=== PATIENT | female | born 1960 | race African-American/Black ===

== ENCOUNTER 2019-09-20 22:19 | Emergency (ER) | payer MEDICAID ==
[~2019-09-20] VITALS: Ht 167.6 cm; Wt 109.0 kg
[~2019-09-20 22:19] MED LIST: AMLO5TAB4 PO; ASPI-1393 PO; DOCU-138 PO
[2019-09-20] MEDS ORDERED: MORPHINE SULFATE 4 MG/ML CPJ (NOT FOR IM USE) IV STA (22:28)
[2019-09-20] MEDS ORDERED: SODIUM CHLORIDE 0.9% 500 ML IV ONE (22:30)
[2019-09-20] MEDS ORDERED: HYDRALAZINE 20MG/ML VIAL IV ONE (22:30)
[2019-09-20] MEDS ORDERED: ONDANSETRON HCL 4MG/2ML INJ IV ONE (22:45)
[2019-09-20] MEDS ORDERED: NICARDIPINE 50 MG in SODIUM CHLORIDE 0.9% 230 ML IV PRN ×2 (23:15→23:30)
[2019-09-20] MEDS ORDERED: ETOMIDATE 2MG/ML 10ML VIAL IV ONE (23:29)
[2019-09-20] MEDS ORDERED: VECURONIUM BROMIDE 10 MG/VIAL IV ONE (23:29)
[2019-09-20] MEDS ORDERED: SUCCINYLCHOLINE CHLORIDE 200MG/10ML IV ONE (23:29)
[2019-09-20] MEDS ORDERED: DEXAMETHASONE 4MG/ML 1ML VIAL IV ONE (23:30)
[2019-09-20] MEDS ORDERED: LORAZEPAM 2MG/ML CPJ ONE (23:49)
[2019-09-21] MEDS ORDERED: PROPOFOL 10MG/ML 100ML 100 ML IV SCH
[2019-09-21] MEDS ORDERED: LORAZEPAM 2MG/ML CPJ IV ONE
[2019-09-21 00:16] LABS: BG BASE EXCESS 1.7 mmol/L (-2.0-2.0); BG CARBOXYHEMOGLOBIN 0.1 % (0.5-1.5); BG DEOXYHEMOGLOBIN 0.5 % (0.0-5.0); BG FRACTION INSPIRED OXYGEN 100; BG METHEMOGLOBIN 0.2 % (0.0-1.5); BG OXYGEN SATURATION 99.5 % (92.0-98.5); BG OXYHEMOGLOBIN 99.2 % (94.0-97.0); BG PCO2 50.9 mmHg (35.0-45.0); BG PH 7.358 (7.350-7.450); BG SAMPLE SITE RIGHT RADIAL; BG TIDAL VOLUME(mL) 500 mL; BG TOTAL HEMOGLOBIN 12.9 g/dL (12.0-18.0); BG VENT MODE VENT - A/C; BG VENT RATE 14 set
[2019-09-21 00:17] LABS: BASOPHILS % 0.2 % (0.0-2.0); EOSINOPHILS % 0.5 % (0.0-5.0); HEMATOCRIT. 37.6 % (36.0-48.0); HEMOGLOBIN. 12.4 g/dL (12.0-16.0); LYMPHOCYTES % 14.9 % (20.0-50.0); MEAN CORPUSCULAR HEMOGLOBIN 29.1 pg (28.0-32.0); MEAN CORPUSCULAR VOLUME 87.8 fL (81.0-99.0); MEAN PLATELET VOLUME 7.8 fl (7.4-10.4); MONOCYTES % 3.7 % (2.0-8.0); NEUTROPHILS % 80.7 % (40.0-76.0); PLATELET 303 x1000/uL (130-400); RED BLOOD CELL COUNT 4.28 mill/uL (4.2-5.4); RED CELL DISTRIBUTION WIDTH 14.7 % (11.6-14.6)
[2019-09-21 00:23] LABS: CHLORIDE 104 mEq/L (98-107)
[2019-09-21 00:27] LABS: PARTIAL THROMBOPLASTIN TIME 23.2 sec (23.4-31.0); PROTHROMBIN TIME 10.7 sec (9.6-11.0)
[2019-09-21] MEDS ORDERED: MIDAZOLAM HCL 50 MG in DEXTROSE 5% WATER 40 ML IV ONE ×8 (01:00→02:30)
[2019-09-21] MEDS ORDERED: MANNITOL 12.5G (25%) VIAL 50ML IV ONE (01:30)
[2019-09-21] MEDS ORDERED: VECURONIUM BROMIDE 10 MG/VIAL IV ONE (03:30)
[2019-09-21 03:33] VITALS: BP 127/72
== END 2019-09-21 04:35 | disposition short-term general hospital (02) ==
LOC: ER 22:19 → CANBEDREQ 09-21 05:55
DX: I62.9 Nontraumatic intracranial hemorrhage, unspecified (principal); E66.01 Morbid (severe) obesity due to excess calories; J45.909 Unspecified asthma, uncomplicated; I10 Essential (primary) hypertension; Z98.890 Other specified postprocedural states; Z79.899 Other long term (current) drug therapy; Z86.73 Personal history of transient ischemic attack (TIA), and cerebral infarction without residual deficits; Z68.38 Body mass index [BMI] 38.0-38.9, adult
CPT/HCPCS: 31500; 36415; 36600; 70450; 71045; 80053; 82375; 82805; 83880; 84484; 85025; 85610; 85730; 93005; 94002; 96365; 96366; 96368; 96375; 99291; J0330; J0360; J1100; J2060; J2150; J2250; J2270; J2405; J2704; J3490; J7040; J7050; J7060; Z7610